=== PATIENT | male | born 1995 | race Caucasian/White ===

== ENCOUNTER → 2018-06-30 12:48 | Outpatient (REF) | payer SELFPAY | LOC: OM 12:48 | PROVIDERS: PCP Pediatrics; Visit Provider Nurse Practitioner Family | DX: Z02.83 Encounter for blood-alcohol and blood-drug test (principal) ==

== ENCOUNTER → 2018-06-30 12:48 | Outpatient (REF) | payer SELFPAY | LOC: OM 12:48 | PROVIDERS: PCP Pediatrics; Visit Provider Nurse Practitioner Family | DX: Z02.1 Encounter for pre-employment examination (principal) ==

== ENCOUNTER 2025-03-30 17:02 | Emergency (ER) | payer MEDICAID, SELFPAY ==
[2025-03-30 17:12] VITALS: BP 104/60; PULSE 68; RESP 16; TEMP 36.9; O2SAT 98
--- NOTE | 2025-03-30 17:15 | DI.RAD_ITS ---
Exam(s) XR WRIST RT COMPL NAVICULAR EXAM: XR WRIST RT COMPL NAVICULAR CLINICAL HISTORY: wrist deformity. TECHNIQUE: 2D digital imaging was performed of the right wrist. Six views were obtained. Scaphoid, PA, lateral and oblique views were obtained. COMPARISON: CR RIGHT WRIST COMPLETE from 11/10/2012 FINDINGS: BONES: There is an acute mildly displaced fracture of the ulnar styloid process. There is a comminut ed intra-articular fracture of the distal radius. The distal fracture is impacted and dorsally angul ated. No bony destructive lesion is seen. JOINTS: The carpal bones are normally aligned. SOFT TISSUE: Normal. IMPRESSION: 1. Acute comminuted, intra-articular and angulated fracture of the distal radius. 2. Mildly displaced acute fracture of the ulnar styloid process. DATA REPOSITORY: RADIATION DOSE DELIVERED:
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
[2025-03-30] MEDS: HYDROmorphone 2 MG/ML SYR 0.5 MG IVP ×2 (17:34→18:50)
[2025-03-30] MEDS: Ketorolac 15 MG/ML VIAL IVP (17:34)
[2025-03-30] MEDS: ACETAMINOPHEN 1,000 MG/100 ML BTL 400 MG IVPB (17:39)
[2025-03-30 19:03] VITALS: BP 153/65; PULSE 68
--- NOTE | 2025-03-30 19:30 | DI.RAD_ITS ---
Exam(s) XR WRIST RT COMPLETE EXAM: XR WRIST RT COMPLETE CLINICAL HISTORY: post-reduction XR; send to [facility]. TECHNIQUE: 2D digital imaging was performed. Three views. COMPARISON: No exams were available for comparison FINDINGS: BONES: A splint has been placed. There has been some improvement in the alignment of the previously noted comminuted intra-articular fracture of the distal radius, with left posterior displacement and angulation. The ulnar styloid fractures unchanged. JOINTS: The carpal bones are normally aligned. SOFT TISSUE: Mostly obscured by cast material. IMPRESSION: Improved alignment of distal radial fracture. DATA REPOSITORY: RADIATION DOSE DELIVERED:
[2025-03-30 20:02] VITALS: BP 130/74; PULSE 95
--- NOTE | 2025-03-30 20:29 | DI.VRAD_ITS ---
PROCEDURE INFORMATION: Exam: XR Right Wrist Exam date and time: 03/30/2025 8:01 PM Age: 28 years old Clinical indication: Pain; Wrist; Right; Post reduction TECHNIQUE: Imaging protocol: Radiologic exam of the right wrist. Views: 3 or more views. COMPARISON: CR XR WRIST RT COMPL NAVICULAR 03/30/2025 5:49 PM FINDINGS: Limitations: Casting material overlying the forearm, limiting evaluation of fine bony/soft tissue detail. Bones/joints: There is redemonstration of a comminuted fracture of the distal radius involving the joint space. There is interval improvement in alignment when compared to the prior examination. No evidence of new injury. Stable appearance of distally displaced ulnar styloid process fracture. Soft tissues: Soft tissue swelling again noted. IMPRESSION: Interval improvement in radial fracture alignment. No new abnormality seen. Dictated and Authenticated by: Christie Herrera MD. Orderin Kalin Mayer MD
[2025-03-30 20:57] VITALS: BP 128/72; PULSE 90
[2025-03-30] MEDS: oxyCODONE 5 MG TAB 30 MG PO (21:01)
--- NOTE | 2025-04-02 18:02 | NUR.NOTE ---
Accessed chart to get the discharge diagnosis for [facility] billing purposes. Nursing Note:
== END 2025-03-30 21:20 | disposition home or self-care (01) ==
PROVIDERS: Emergency Provider Physician Assistant
DX: S52.611A Displaced fracture of right ulna styloid process, initial encounter for closed fracture (principal); S52.571A Other intraarticular fracture of lower end of right radius, initial encounter for closed fracture; W18.39XA Other fall on same level, initial encounter; Y93.67 Activity, basketball; Y92.310 Basketball court as the place of occurrence of the external cause
CPT/HCPCS: 29125; 36415; 96365; 96375; 99284; 73110; J0131; J1171; J1885

== ENCOUNTER 2025-03-31 09:11 | Emergency (ER) | payer MEDICAID, SELFPAY ==
--- NOTE | 2025-03-31 09:15 | DI.RAD_ITS ---
Exam(s) XR WRIST RT COMPLETE EXAM: XR WRIST RT COMPLETE CLINICAL HISTORY: Numbness fracture. TECHNIQUE: 2D digital imaging was performed. Three views. COMPARISON: CR,XR XR WRIST RT COMPLETE from 03/30/2025 FINDINGS: BONES: Stable alignment of comminuted, impacted intra-articular fracture of the distal radius. There is a fragment which is displaced volarly. The ulnar styloid fractures unchanged. No bony destructi ve lesion is seen. JOINTS: The carpal bones are normally aligned. SOFT TISSUE: Overlying cast material. IMPRESSION: Stable alignment of comminuted intra-articular fracture of the distal radius and ulnar styloid fractu re. DATA REPOSITORY: RADIATION DOSE DELIVERED:
[2025-03-31 09:16] VITALS: BP 123/80; PULSE 68; RESP 16; TEMP 36.6; O2SAT 95
[2025-03-31] MEDS: Ibuprofen 600 MG TAB PO (09:53)
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
--- NOTE | 2025-03-31 10:37 | DI.VRAD_ITS ---
PROCEDURE INFORMATION: Exam: XR Right Wrist Exam date and time: 03/31/2025 10:20 AM Age: 28 years old Clinical indication: Other: Numbness/fx TECHNIQUE: Imaging protocol: Radiologic exam of the right wrist. Views: 3 or more views. COMPARISON: CR XR WRIST RT COMPLETE 03/30/2025 8:01 PM FINDINGS: Limitations: Fine bony detail is obscured by an overlying cast. Bones/joints: Similar appearance of a comminuted fracture of the distal radius with persistent volar displacement of the radial styloid process. Displaced ulnar styloid process fracture. Soft tissues: Normal. IMPRESSION: 1. Similar appearance of a comminuted fracture of the distal radius with persistent volar displacement of the radial styloid process. 2. Displaced ulnar styloid process fracture. Dictated and Authenticated by: Baudilio Ignacio MD. Orderin Raine Hills MD
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
--- NOTE | 2025-04-02 10:21 | NUR.NOTE ---
[facility] in [place] called asking for the phone number of the patient. The one that they have is not the patient's. Gave them the patient's number and the patient's mothers number for contact info. Nursing Note:
== END 2025-03-31 11:34 | disposition left against medical advice (07) ==
PROVIDERS: Emergency Provider Emergency Medicine
DX: S52.611D Displaced fracture of right ulna styloid process, subsequent encounter for closed fracture with routine healing (principal); S52.571D Other intraarticular fracture of lower end of right radius, subsequent encounter for closed fracture with routine healing; F17.200 Nicotine dependence, unspecified, uncomplicated; W18.39XD Other fall on same level, subsequent encounter; Z53.29 Procedure and treatment not carried out because of patient's decision for other reasons
CPT/HCPCS: 99283; 73110